=== PATIENT | male | born 1960 | race Native Hawaiian/Other Pacific Islander ===

== ENCOUNTER 2016-11-28 10:17 | Outpatient (CLI) | payer BC | END 2016-11-28 11:20 | disposition home or self-care (01) | LOC: RAD 10:17 | DX: R22.43 Localized swelling, mass and lump, lower limb, bilateral (principal) ==

== ENCOUNTER 2018-06-02 08:23 | Outpatient (CLI) | payer BC ==
[2018-06-02 08:54] LABS: PLATELET COUNT 97 K/uL (142-355)
[2018-06-02 09:03] LABS: POTASSIUM 3.7 mmol/L (3.6-5.2)
== END 2018-06-02 22:57 | disposition home or self-care (01) ==
LOC: LABW 08:23
PROVIDERS: Internal Medicine
DX: R10.9 Unspecified abdominal pain (principal); E11.9 Type 2 diabetes mellitus without complications
CPT/HCPCS: 36415; 80048; 80076; 81000; 82150; 82550; 83690; 85027

== ENCOUNTER 2018-09-09 16:02 | Outpatient (CLI) | payer BC | END 2018-09-09 23:30 | disposition home or self-care (01) | LOC: CT 16:02 | DX: R10.9 Unspecified abdominal pain (principal) ==